=== PATIENT | female | born 1960 | race Caucasian/White ===

== ENCOUNTER 2018-07-09 09:24 | Observation (INO) | payer BC ==
[~2018-07-09] VITALS: Ht 167.6 cm; Wt 68.2 kg
--- NOTE | 2018-07-09 10:47 | NUR ---
RECEIVED TO ROOM DIRECT ADMIT VIA WHEELCHAIR. GLASSES ON. DENIES ANY PAIN OR DISCOMFORT AT PRESENT. WILL ADMIT.
[2018-07-09 10:48] VITALS: BP 113/75; Ht 167.6 cm; Wt 68.2 kg
[2018-07-09 17:31] VITALS: BP 106/70
--- NOTE | 2018-07-09 19:20 | NUR ---
RESUMING CARE. PT LAYING IN BED A&O X4 BREATH SOUNDS EVEN UNLABORED, UP AD NAIF PT HAS TELEMTRY ON , IV IN RIGHT HAND SL , NO C/O PAIN OR DISTRESS CL IN REACH PAT WILLETT
[2018-07-09 20:00] VITALS: BP 107/70
[2018-07-10] VITALS: BP 96/66
[2018-07-10 04:00] VITALS: BP 140/68
--- NOTE | 2018-07-10 07:50 | NUR ---
REPORT RECEIVED. WILL CONTINUE WITH POC. PT CURRENTLY LYING SEMI FOWLERS. CALL LIGHT W/I REACH. PT IS AAO AND UP AD NAIF. RR EVEN AND UNLABORED ON RA. R.HAND PIV IS SALINE LOCKED. PT DENIES ANY NEEDS AT THIS TIME. NO S/S OF DISTRESS NOTED. WILL CTM.
[2018-07-10 08:27] VITALS: BP 109/65
[2018-07-10 11:50] VITALS: BP 121/62
--- NOTE | 2018-07-10 16:32 | NUR ---
PT DISCHARGED HOME VIA WHEELCHAIR WITH FAMILY. PT SIGNED PROPER DISCHARGE INSTRUCTION AND REMOVED ALL VALUABLES FROM THE ROOM. PIV REMOVED WITH CATHETER TIP FULLY INTACT.
--- NOTE | 2018-07-10 17:42 | MORECARE ---
CASE MANAGEMENT DISCHARGE SUMMARY PATIENT: MAR WOLF UNIT: [id number] ADM DATE: 07/09/18 AGE: 57 : 64 SEX: F ROOM/BED: D.2135 AUTHOR: SAMIA CEVALLOS PHYSICIAN: REFERRING PHYSICIAN: CODY ARCE MD DATE OF SERVICE: 07/10/18 Discharge Plan Patient Name: MAR WOLF [facility] [facility] 1960 Planned Disposition: Home Anticipated Discharge Date: 07/10/18 Discharge Date: 07/10/2018 Expected LOS: 1 Initial Reviewer: [email or web address] Initial Review Date: 07/10/2018 Generated: 07/10/18 6:42 pm Patient Name: MAR WOLF Page [id number] at 1742 All edits/amendments must be made on the electronic document DICTATION DATE: 07/10/181740 READING TUTOR: CARIDAD 07/10/181740 RPT#: [id number] DC DATE:07/10/18 STATUS: DIS IN [facility] [address] [place] [address] END OF REPORT
--- NOTE | 2018-07-11 11:43 | HP ---
PATIENT: MAR WOLF MEDICAL RECORD: [id number] ACCOUNT: [id number] LOCATION[facility]2135 : 64 ADMISSION DATE: 07/09/18 PCP: CODY ARCE MD HISTORY AND PHYSICAL EXAMINATION REASON FOR ADMISSION: Fast heart rate and near fainting. HISTORY OF PRESENT ILLNESS: The patient is a 57-year-old 1 female who noticed approximately 4 days before admission a fast heart rate while she was doing some jumping jacks. She had her watch recorded her heart rate of 175, it lasted several minutes and resolved. She has had intermittently since that time felt lightheaded. Her blood pressure was elevated by the school nurse in the 140/100 range. She came to my office yesterday with these symptoms, was hypertensive and initially heart rate 133 beats a minute that was regular. Upon resting and lying down for an EKG, she converted into a sinus at 85 beats per minute. GHP and thyroid functions were obtained and normal. Generally, the echocardiogram this morning showed normal heart structure. On driving to the office this morning, she felt lightheaded and as her heart was racing, felt like she would faint. For this reason, she is now been admitted to rule out reentry type tachycardia. She denies chest pain with activity except with fast heart rate, she feels tight in her chest. PAST MEDICAL HISTORY: Allergic rhinitis, borderline hypertension in the past. PAST SURGICAL HISTORY: . SOCIAL HISTORY: Nonsmoker, rare alcohol drinker. 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 She has had flu vaccine this year. She has had Adacel in the past. FAMILY HISTORY: Father in his 80s from a stroke. Mother is obese at 350 pounds, but otherwise healthy. REVIEW OF SYSTEMS: GENERAL: Fatigued since onset of tachycardia. Prior to that, felt fine. Weight has been up about 10 pounds over the last 2 years. No fever. HEENT: No recent visual change, sinus congestion, hearing difficulty. RESPIRATORY: Mild shortness of breath with tachycardia, otherwise unremarkable. No cough. CARDIAC: Palpitations as mentioned above with tightness in her chest, at peak heart rate over the last 3-4 days. GASTROINTESTINAL: No nausea, vomiting, change in stools or blood per rectum. ENDOCRINE: Denies polyuria, polydipsia, heat or cold intolerance. MUSCULOSKELETAL: No arthralgias. INTEGUMENT: Few seborrheic keratoses, but no new rashes. PSYCHIATRIC: Denies depress mood. She has been anxious since onset of the symptoms, otherwise has not been. MEDICATIONS: Started atenolol last night 50 mg a day, Flonase nasal spray p.r.n. ALLERGIES: None mentioned. PHYSICAL EXAMINATION: VITAL SIGNS: Temperature 97.9, pulse 110 and regular, respirations 18, blood HISTORY AND PHYSICAL [id number] MAR WOLF pressure 140/100, sats 100% on room air. GENERAL: The patient is alert, oriented, and anxious. Her eyes are clear. Oropharynx unremarkable. NECK: No bruits or masses. Thyroid is nontender, nonenlarged. No bruits. CHEST: Clear without wheeze or rales. HEART: Tachycardic without murmur or gallop. ABDOMEN: Soft, nontender. No organomegaly or abdominal bruits. EXTREMITIES: No CC&E. NEUROLOGIC: Oriented to person, place, and time. Cranial nerves intact. Gait normal. LABORATORY DATA: Office lab showed normal GHP, thyroid functions, electrolytes. DIAGNOSTIC DATA: Echocardiogram officially shows normal cardiac structure and function. EKG shows borderline IVCD. ASSESSMENT: Intermittent tachycardia, exertional, etiology unknown, possible reinjury? history of mild hypertension, and allergic rhinitis. PLAN: The patient will be admitted for cardiac monitoring and cardiology consult with Dr. Haddad. Further workup pending clinical course. TRANSINT:[id number] Voice Confirmation ID: [id number] DOCUMENT ID: [id number] CODY ARCE MD at 1143 CC: [id number] DICTATION DATE: 07/09/18 1319 CHILDREN'S SERVICE SUPERVISOR: 07/09/18 1426 DIS IN 07/10/18 [id number] [place] [id number]
== END 2018-07-10 16:33 | disposition home or self-care (01) ==
LOC: D.SDCHOLD 09:24 → D.M2 09:24 → OBSVTIME 12:00 → D.M2 07-10 16:33
PROVIDERS: ADMIT Family Medicine; ATTEND Family Medicine
DX: R00.0 Tachycardia, unspecified (principal); I10 Essential (primary) hypertension; J30.9 Allergic rhinitis, unspecified; K21.9 Gastro-esophageal reflux disease without esophagitis

== ENCOUNTER → 2020-02-10 08:21 | Outpatient (CLI) | payer BC ==
[2018-07-09 10:48] VITALS: BMI 24.2
== END | disposition home or self-care (01) ==
LOC: D.HCCECHO 08:21
PROVIDERS: ATTEND Internal Medicine Cardiovascular Disease
DX: I34.0 Nonrheumatic mitral (valve) insufficiency (principal)